=== PATIENT | female | born 1955 | race Caucasian/White ===

== ENCOUNTER 2020-05-29 08:10 | Emergency (ER) | payer MEDICARE, OTHER ==
[2020-05-29 08:54] LABS: Bilirubin Negative (Negative); Blood, Urine Negative (Negative); Clarity Clear (Clear); Glucose, Urine (Dipstick) Negative (Negative); Ketone, Urine Negative (Negative); Leukocyte Small (Negative); Nitrite Negative (Negative); Protein, Urine (Dipstick) Negative (Neg-Trace); Urobilinogen 0.2 mg/dL (Less than 2)
[2020-05-29 09:02] LABS: Bacteria/HPF 2+ HPF (None Seen); Mucous/LPF 1+ LPF (<2+); Oval Fat Bodies/HPF Rare HPF (None Seen); RBC/HPF 0-3 HPF (0-3)
[2020-05-29] MEDS ORDERED: Ketorolac Tromethamine 60 MG/2 ML VIAL ONE (09:04)
[2020-05-29] MEDS ORDERED: HYDROcodone/Acetaminophen 5/325 mg Tablet ONE (09:04)
== END 2020-05-29 09:32 | disposition home or self-care (01) ==
LOC: MADERS 08:10
DX: M54.5 Low back pain (principal); I10 Essential (primary) hypertension; R73.03 Prediabetes; F32.9 Major depressive disorder, single episode, unspecified; Z79.899 Other long term (current) drug therapy; Z79.84 Long term (current) use of oral hypoglycemic drugs; Z85.3 Personal history of malignant neoplasm of breast; X50.1XXA Overexertion from prolonged static or awkward postures, initial encounter
CPT/HCPCS: 81003; 81015; 87086; 96372; 99283; J1885

== ENCOUNTER 2021-08-10 07:09 | Outpatient (CLI) | payer MEDICARE, OTHER ==
[2021-08-10 08:18] LABS: ALT (SGPT) 19 U/L (8-55); AST (SGOT) 14 U/L (5-34); Albumin 3.9 g/dL (3.4-4.8); Alkaline Phosphatase 124 U/L (40-110); Anion Gap 11 mmol/L (10-20); BUN (Urea Nitrogen) 22 mg/dL (9.8-20.1); Bilirubin, Total 0.4 mg/dL (0.2-1.2); Calc. Creatinine Clearance 0 mL/min (70-130); Calcium 9.4 mg/dL (7.8-10.44); Carbon Dioxide 25 mmol/L (23-31); Cardiac Risk 4.8 (Less than 4.5); Chloride 110 mmol/L (98-107); Cholesterol 225 mg/dl (< 200 Desired); Globulin 3.1 g/dL (2.4-3.5); Glucose 117 mg/dL (80-115); HDL Cholesterol 47 mg/dL (>60 Neg Risk); LDL Cholesterol, Calculated 149 mg/dL; Potassium 4.3 mmol/L (3.5-5.1); Sodium 142 mmol/L (136-145); Triglycerides 147 mg/dL (Less than 150)
[2021-08-10 11:18] LABS: Hemoglobin A1c 5.8 % (4.0-6.0)
== END 2021-08-10 07:10 | disposition home or self-care (01) ==
LOC: MADLAB 07:09
PROVIDERS: ATTEND Family Medicine
DX: E78.5 Hyperlipidemia, unspecified (principal); R73.03 Prediabetes
CPT/HCPCS: 36415; 80053; 80061; 83036

== ENCOUNTER 2022-07-28 06:38 | Emergency (ER) | payer MEDICARE, OTHER ==
[2022-07-28] MEDS ORDERED: Aspirin Chewable 81 MG TAB ONE (07:09)
[2022-07-28] MEDS ORDERED: Ondansetron PF 4 MG/2 ML Vial ONE (07:09)
[2022-07-28] MEDS ORDERED: Morphine 4 MG/ML VIAL ONE (07:09)
[2022-07-28 07:18] LABS: #Basophils 0.1 thou/uL (0.0-0.2); #Eosinphils 0.2 thou/uL (0.0-0.7); #Lymphocytes 2.3 thou/uL (1.20-3.40); #Monocytes 0.6 thou/uL (0.11-0.59); %Basophils 1.1 % (0.0-1.0); %Eosinophils 2.8 % (0.0-10.0); %Lymphocytes 31.7 % (21.0-51.0); %Monocytes 7.7 % (0.0-10.0); %Neutrophils 56.6 % (42.0-75.0); Hemoglobin 15.6 g/dL (12.0-16.0); Mean Corpuscular HGB CONC 31.7 g/dL (32.0-36.0); Mean Corpuscular Hemoglobin 26.8 pg (27.0-31.0); Mean Corpuscular Volume 84.6 fl (78.0-98.0); Mean Platelet Volume 9.9 fL (7.4-10.4); Platelet Count 226 10x3/uL (130-400); RBC Distribution Width 12.2 % (11.5-14.5); Red Blood Cell (RBC) Count 5.79 mill/uL (4.20-5.40); White Blood Cell (WBC) Count 7.1 10x3/uL (4.8-10.8)
[2022-07-28 07:29] LABS: ALT (SGPT) 18 U/L (8-55); AST (SGOT) 17 U/L (5-34); Albumin 4.2 g/dL (3.4-4.8); Alkaline Phosphatase 115 U/L (40-110); Anion Gap 16 mmol/L (10-20); BUN (Urea Nitrogen) 21 mg/dL (9.8-20.1); Bilirubin, Total 0.5 mg/dL (0.2-1.2); Calc. Creatinine Clearance 0 mL/min (70-130); Calcium 9.8 mg/dL (7.8-10.44); Carbon Dioxide 21 mmol/L (23-31); Chloride 108 mmol/L (98-107); Estimated GFR 78; Globulin 3.4 g/dL (2.4-3.5); Glucose 125 mg/dL (80-115); Potassium 4.1 mmol/L (3.5-5.1); Protein, Total 7.6 g/dL (5.8-8.1); Sodium 141 mmol/L (136-145)
[2022-07-28] MEDS ORDERED: Iopamidol 370 76% 125 ML VIAL FS ONE (08:20)
[2022-07-28] MEDS ORDERED: Nitroglycerin 0.4 MG TAB 1 EACH ONE ×2 (09:27→09:35)
[2022-07-28 10:09] LABS: SARS-CoV-2 NAA Rapid Test Not Detected (NotDetected)
[2022-07-28] MEDS ORDERED: Sodium Chloride 0.9% 100 ML BAG ONE (12:02)
== END 2022-07-28 17:00 | disposition left against medical advice (07) ==
LOC: MADERS 06:38
DX: R07.89 Other chest pain (principal); I10 Essential (primary) hypertension; Z20.822 Contact with and (suspected) exposure to COVID-19; E11.9 Type 2 diabetes mellitus without complications; E78.5 Hyperlipidemia, unspecified; Z79.899 Other long term (current) drug therapy; Z79.84 Long term (current) use of oral hypoglycemic drugs
CPT/HCPCS: 36415; 71045; 71275; 80053; 84484; 85025; 85379; 93005; 96374; 96375; J2270; J2405; Q9967

== ENCOUNTER 2025-02-21 07:04 | Outpatient (CLI) | payer MEDICARE ==
[2025-02-21 09:17] LABS: ALT (SGPT) 31 U/L (Less than 34); AST (SGOT) 34 U/L (11-34); Albumin 4.1 g/dL (3.1-4.5); Alkaline Phosphatase 94 U/L (40-110); Anion Gap 13 mmol/L (10-20); BUN (Urea Nitrogen) 19 mg/dL (9.8-20.1); Bilirubin, Direct 0.2 mg/dL (0.1-0.3); Bilirubin, Total 0.5 mg/dL (0.3-1.2); Calc. Creatinine Clearance 0 mL/min (70-130); Calcium 9.2 mg/dL (7.8-10.44); Carbon Dioxide 24 mmol/L (23-31); Cardiac Risk 2.2 (Less than 4.5); Chloride 107 mmol/L (98-107); Cholesterol 137 mg/dl (< 200 Desired); Glucose 93 mg/dL (80-115); HDL Cholesterol 63 mg/dL (>60 Neg Risk); LDL Cholesterol, Calculated 57 mg/dL; Potassium 4.2 mmol/L (3.5-5.1); Sodium 140 mmol/L (136-145); Triglycerides 85 mg/dL (Less than 150)
== END 2025-02-21 07:05 | disposition home or self-care (01) ==
LOC: MADLAB 07:04
PROVIDERS: ATTEND Internal Medicine Cardiovascular Disease
DX: E78.5 Hyperlipidemia, unspecified (principal); R73.03 Prediabetes
CPT/HCPCS: 36415; 80048; 80061; 80076; 83036

== ENCOUNTER 2025-07-10 11:31 | Outpatient (CLI) | payer MEDICARE | END 2025-07-10 11:32 | disposition home or self-care (01) | LOC: MADRAD 11:31 | PROVIDERS: ATTEND Family Medicine | DX: M25.562 Pain in left knee (principal); M25.552 Pain in left hip; M25.572 Pain in left ankle and joints of left foot; M19.072 Primary osteoarthritis, left ankle and foot ==